=== PATIENT | male | born 1975 | race Caucasian/White ===

== ENCOUNTER 2019-11-07 10:51 | Emergency (ER) | payer MEDICAID ==
[~2019-11-07] VITALS: Ht 165.1 cm; Wt 68.7 kg
[2019-11-07 11:26] VITALS: BP 131/74
[2019-11-07 13:41] VITALS: BP 128/70
== END 2019-11-07 13:41 | disposition home or self-care (01) ==
LOC: MED 10:51
DX: K61.1 Rectal abscess (principal)
CPT/HCPCS: 99283